=== PATIENT | female | born 1965 | race African-American/Black ===

== ENCOUNTER 2020-05-21 09:49 | Emergency (ER) | payer OTHER, SELFPAY ==
--- NOTE | 2020-05-21 10:06 | ED.EXTPRO ---
HPI - Extremity Problem General Chief complaint: Extremity Problem,Nontraumatic Stated complaint: right hand pain Time Seen by Provider: 05/21/20 10:06 Source: patient and RN notes reviewed Mode of arrival: ambulatory Limitations: no limitations History of Present Illness HPI Narrative: 55-year-old female presents with concern for pain to her right hand. She denies any injury, trauma. Reports pain for the past 2 days, dorsal hand pain. Reports pain worsens when she bends her third and fourth digit. Denies redness, swelling, decreased range of motion, decreased strength. 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 Complaint: extremity pain Related Data Home Medications Medication Instructions Recorded Confirmed atorvastatin 10 mg DAILY 05/21/20 05/21/20 lisinopril 10 mg DAILY 05/21/20 05/21/20 Allergies Allergy/AdvReac Type Severity Reaction Status Date / Time No Known Allergies Allergy Verified 05/21/20 09:55 Review of Systems Review of Systems: Narrative: CONSTITUTIONAL: Denies malaise, chills, sweats, or fever. SKIN: Denies redness, swelling, bruising MUSCULOSKELETAL: Reports right dorsal hand pain NEUROLOGIC: Denies numbness, weakness. All systems reviewed & are unremarkable except as noted in HPI and below PMFSH Social History Social History Gender identity (if verbalized by the patient): Female Comments At time of signature, agree with nursing past medical, surgical, social and family history. There is no relevant family history pertinent to the presenting complaint Exam Narrative: Exam Narrative: GENERAL: Well-appearing, well-nourished, and in no acute distress. HEAD: Normocephalic EYES: PERRLA, conjunctivae clear NECK: Supple. CHEST: Speaks in full sentences. No respiratory distress. HEART: Regular rate and rhythm. Normal and equal peripheral pulses. EXTREMITIES: Right hand and digits of hand have normal strength and sensation. 5/5 strength with digit flexion, extension. Range of motion normal. No clubbing, cyanosis, or edema noted. No tenderness. Skin intact. Normal digital cascade with flexion of fingers, median, ulnar and radial nerve intact. Normal sensation of each side of finger. Can perform 'okay' sign, 'cross over finger test of index and middle fingers' and 'thumbs up' sign. No scissoring. Normal thumb opposition. Good capillary refill and radial pulse. Distal capillary refill less than 3 seconds. SKIN: Warn, dry, intact, pink. No rash NEURO: Alert and oriented x3. PSYCH: Normal mood and affect Course Course Emergency Course: Patient is aware of diagnosis, understands and agrees to treatment plan. Anticipatory guidance given. Patient agrees to follow-up as directed and is aware of reasons to seek care at the emergency department. Portions of this record may have been created with voice recognition software Vital Signs Vital signs: Vital Signs Temperature 98.0 F 05/21/20 10:10 Pulse Rate 59 L 05/21/20 10:10 Respiratory Rate 16 05/21/20 10:10 Blood Pressure 164/70 H 05/21/20 10:10 Pulse Oximetry 99 05/21/20 10:10 Temperature 98.0 F 05/21/20 10:10 Pulse Rate 59 L 05/21/20 10:10 Respiratory Rate 16 05/21/20 10:10 Blood Pressure 164/70 H 05/21/20 10:10 Pulse Oximetry 99 05/21/20 10:10 Reviewed. Patient has history of hypertension MDM - Extremity (Nontraumatic) MDM Narrative Medical decision making narrative: Patients pain is consistent with musculoskeletal etiology. No signs of neurological or vascular compromise on exam. Compartments and tissues are soft without signs of compartment syndrome. Pain is felt appropriate for further evaluation on an outpatient basis. Critical Care Time Critical Care Time Critical Care Time: No Discharge Plan Discharge Clinical Impression: Hand tendinitis Patient Disposition: Home, Self-Care Condition: Stable Instructions: Tendinitis (ED) Additional Instructions: Avoid activities that cause pain until the amanda
[2020-05-21 10:10] VITALS: BP 164/70; PULSE 59; RESP 16; TEMP 36.7; O2SAT 99
== END 2020-05-21 10:29 | disposition home or self-care (01) ==
PROVIDERS: Emergency Provider Nurse Practitioner
DX: M77.9 Enthesopathy, unspecified (principal); E78.00 Pure hypercholesterolemia, unspecified; I10 Essential (primary) hypertension
CPT/HCPCS: 99213; G0463

== ENCOUNTER 2020-07-08 17:33 | Emergency (ER) | payer OTHER, SELFPAY ==
--- NOTE | 2020-07-08 17:42 | ED.GENADULT ---
HPI - General Adult General Chief complaint: Nausea/Vomiting/Diarrhea Stated complaint: Not Feeling Good Time Seen by Provider: 07/08/20 18:10 Source: patient Mode of arrival: ambulatory Limitations: no limitations History of Present Illness HPI narrative: 55-year-old female patient presents to the [facility] with complaints of nausea and vomiting that started this morning. Patient states she has had 3 episodes of this and states that it is all been some watery vomit. Patient states she still has a little bit of nausea denies any abdominal pain. Denies any fevers, body aches or chills. Denies any chest pain or shortness of breath. Patient states overall she feels okay except for the nausea and vomiting that came out of nowhere. Patient states she did have a normal bowel movement today. Patient states she does have a little bit of right buttocks pain but thinks that she might of pulled something when she was working out yesterday. Patient states that she has been able to keep down a couple of saltines prior to arrival today. Patient states she just got tested for Covid last week it was negative. Patient states she typically gets her self tested every other week at the free testing facility at [facility] Related Data Home Medications Medication Instructions Recorded Confirmed atorvastatin 10 mg DAILY 05/21/20 05/21/20 lisinopril 10 mg DAILY 05/21/20 05/21/20 Allergies Allergy/AdvReac Type Severity Reaction Status Date / Time No Known Allergies Allergy Verified 05/21/20 09:55 Review of Systems Review of Systems: Narrative: CONSTITUTIONAL: Denies fever, chills, or sweats. EYES: Denies visual changes, redness, or discharge. ENT: Denies rhinorrhea, congestion, sore throat, or otalgia. CARDIOVASCULAR: Denies chest pain, palpitations, or edema. RESPIRATORY: Denies cough or dyspnea. GASTROINTESTINAL: Denies abdominal pain, positive nausea, vomiting, denies diarrhea. GENITOURINARY: Denies dysuria or hematuria. SKIN: Denies rash or itching. MUSCULOSKELETAL: Denies back pain, joint pain, or myalgia. NEUROLOGIC: Denies headache, numbness, or weakness. PSYCHIATRIC: Denies anxiety or depression. [facility] Social History Social History Gender identity (if verbalized by the patient): Female Comments At the time of my signature I agree with nursing past medical history, surgical, social, and family history. There is no relevant family history pertinent to the presenting complaint. Exam Narrative: Exam Narrative: GENERAL: Well-appearing, well-nourished, and in no acute distress. HEAD: Normocephalic, atraumatic. EYES: PERRLA and EOMI. ENT: Nares clear, no rhinorrhea or epistaxis. Mucous membranes moist. NECK: Supple. No lymphadenopathy CHEST: Clear to auscultation. No respiratory distress. HEART: Regular rate and rhythm. No murmur heard. Normal peripheral pulses. ABDOMEN: Soft, flat, nondistended. No guarding, rebound tenderness, or rigid. No pulsatilla masses. Bowel sounds present in all four quadrants. No organomegaly. Negative Brown?s sign. No periumbicial tenderness. No Supra public tenderness or distension. Good femoral pulses bilaterally. No hernia noted. No scars or surface trauma. No CVA tenderness on percussion EXTREMITIES: Normal range of motion. No edema. SKIN: Warm, dry, no rash. NEURO: No focal deficits. Alert and oriented x3. Course Vital Signs Vital signs: Vital Signs Temperature 37.2 C 07/08/20 17:50 Pulse Rate 66 07/08/20 17:50 Respiratory Rate 18 07/08/20 17:50 Blood Pressure 155/68 H 07/08/20 17:50 Pulse Oximetry 100 07/08/20 17:50 Temperature 37.2 C 07/08/20 17:50 Pulse Rate 66 07/08/20 17:50 Respiratory Rate 18 07/08/20 17:50 Blood Pressure 155/68 H 07/08/20 17:50 Pulse Oximetry 100 07/08/20 17:50 Vital signs reviewed. The patient has been informed that they may have pre-hypertension or Hyper
[2020-07-08 17:50] VITALS: BP 155/68; PULSE 66; RESP 18; TEMP 37.2; O2SAT 100
== END 2020-07-08 18:23 | disposition home or self-care (01) ==
PROVIDERS: Emergency Provider Nurse Practitioner Family
DX: R11.2 Nausea with vomiting, unspecified (principal); E78.00 Pure hypercholesterolemia, unspecified; I10 Essential (primary) hypertension
CPT/HCPCS: 81003; 99213; G0463

== ENCOUNTER 2020-07-09 06:40 | Emergency (ER) | payer OTHER, SELFPAY ==
[2020-07-09 06:43] VITALS: BP 173/73; PULSE 64; RESP 16; TEMP 36.4; O2SAT 98
--- NOTE | 2020-07-09 07:05 | PC.NURSE ---
Assumed care of pt, report received from Riri BETANCOURT, pt is alert and upright on stretcher, order placed - n/v protocol.
[2020-07-09 07:15] VITALS: BP 177/77; PULSE 56
[2020-07-09 07:18] VITALS: BP 186/77; PULSE 59
[2020-07-09 07:20] VITALS: BP 175/82; PULSE 68; RESP 18; O2SAT 98
--- NOTE | 2020-07-09 07:20 | ED.NAVMDI ---
HPI - Nausea/Vomiting/Diarrhea General Chief complaint: Nausea/Vomiting/Diarrhea Stated complaint: just not feeling well Time Seen by Provider: 07/09/20 07:04 Source: patient Mode of arrival: ambulatory Limitations: no limitations History of Present Illness HPI Narrative: This patient is a 55 year old female who presents for an evaluation of nausea and vomiting. Yesterday morning she developed onset of nausea and vomiting. She was evaluated at [facility] yesterday and she was prescribed zofran. She has been taking the zofran but she is still unable to keep anything down. She last took zofran at 2 am this morning. She has tried to drink water and eat apple sauce but she developed emesis afterwards this morning. She denies associated fever, chills, abdominal pain, headache, dizziness, chest pain or diarrhea. She reports a normal bowel movement this morning. MD elicited complaint: nausea and vomiting Related Data Home Medications Medication Instructions Recorded Confirmed atorvastatin 10 mg DAILY 05/21/20 05/21/20 lisinopril 10 mg DAILY 05/21/20 05/21/20 Allergies Allergy/AdvReac Type Severity Reaction Status Date / Time No Known Allergies Allergy Verified 07/09/20 07:15 Review of Systems Review of Systems: All systems reviewed & are unremarkable except as noted in HPI and below Constitutional: Constitutional: Denies chills and Denies fever(s) ENT: Denies dizziness, Denies nasal congestion and Denies sore throat Cardiovascular: Cardiovascular: Denies chest pain Respiratory: Respiratory: Denies cough and Denies dyspnea Gastrointestinal: Gastrointestinal: Denies abdominal pain, Denies diarrhea, Reports nausea and Reports vomiting Genitourinary: Genitourinary: Denies hematuria and Denies nocturia [facility] Past Medical History Medical History (Updated 07/09/20 @ 09:35 by Gwendolyn Sanford MD) Hypertension Social History Social History Gender identity (if verbalized by the patient): Female Exam Const: General: no acute distress and alert Orientation/consciousness: patient oriented x3 Resp: Effort & Inspection: normal respiratory effort, no retractions and no use of accessory muscles Auscultation: clear to auscultation bilaterally Cardio: Rate: regular rate Rhythm: regular rhythm Heart sounds: Murmur heart sound present GI: GI Palp: Yes Soft to palpation, No Tenderness to palpation present (GI), No Guarding due to palpation present (GI) and No Rigid due to palpation Skin: General skin exam: normal color Rashes: no rashes Neuro: General: patient oriented x3 and moves all extremities Course Reevaluation(s) Reevaluation #1: She has had no nausea or vomiting. She was able to drink water and eat crackers without nausea or vomiting. She has no abdominal pain or tenderness. No fever or leukocytosis found to suggest need for imaging. Date: 07/09/20 Time: 09:33 Vital Signs Vital signs: Vital Signs Temperature 97.5 F L 07/09/20 06:43 Pulse Rate 64 07/09/20 06:43 Respiratory Rate 16 07/09/20 06:43 Blood Pressure 173/73 H 07/09/20 06:43 Pulse Oximetry 98 07/09/20 06:43 Temperature 97.5 F L 07/09/20 06:43 Pulse Rate 60 07/09/20 09:04 Respiratory Rate 18 07/09/20 09:04 Blood Pressure 172/70 H 07/09/20 09:04 Pulse Oximetry 100 07/09/20 09:04 MDM - Nausea/Vomiting/Diarrhea Lab Data Result diagrams: 07/09/20 07:22 07/09/20 07:22 Labs: Lab Results 07/09/20 07/09/20 07/09/20 Range/Units 07:09 07:22 07:22 WBC 8.4 (4.5-10.0) K/mm3 RBC 4.68 (4.2-5.4) M/mm3 Hgb 13.1 (12.0-15.0) g/dL Hct 38.1 (37.0-47.0) % MCV 81.4 (80-100) fl MCH 28.0 (26-34) pg MCHC 34.4 (32-36) g/dl RDW 12.4 (11.5-14.5) % Plt Count 299 (150-375) k/mm3 MPV 8.4 (7.4-10.4) fl Immature Gran % (Auto) 0.2 (0-0.5) % Neut % (Auto) 6
[2020-07-09 07:23] LABS: Add Urine Microscopic? YES; Appearance Urine Cloudy (Clear); Bilirubin Urine Negative (Negative); Color Urine Yellow (Yellow); Glucose Urine UA Negative (Negative); Ketones Urine Negative (Negative); Leukocyte Esterase Ur Negative LEU/UL (Negative); Mucus Urine Rare /lpf; Nitrate Urine Negative (Negative); Protein Urine Negative (Negative); Specific Grav Ur 1.013 (1.001-1.035); Squamous Epithelial Cell Urine Many /hpf (Few); Urobilinogen Urine Negative mg/dL (<2.0)
[2020-07-09 07:28] LABS: Basophils Percent Auto 0.1 % (0.2-1.2); Eosinophils Percent Auto 0.1 % (0-4.4); Hematocrit 38.1 % (37.0-47.0); Hemoglobin 13.1 g/dL (12.0-15.0); Immature Granulocyte Absolute 0.02 K/mm3 (0.00-0.031); Immature Granulocyte Percent A 0.2 % (0-0.5); Lymphocytes Absolute Auto 2.46 K/mm3 (0.9-3.2); Lymphocytes Percent Auto 29.3 % (18.3-44.2); Mean Corpuscular HGB Conc 34.4 g/dl (32-36); Mean Corpuscular Volume 81.4 fl (80-100); Mean Platelet Volume 8.4 fl (7.4-10.4); Monocytes Absolute Auto 0.6 K/mm3 (0.1-0.6); Monocytes Percent Auto 7.6 % (2.6-8.5); Neutrophils Absolute Auto 5.3 K/mm3 (1.3-6.7); Neutrophils Percent Auto 62.7 % (45.5-73.1); Platelet Count Result 299 k/mm3 (150-375); Red Blood Count 4.68 M/mm3 (4.2-5.4); Red Cell Distribution Width 12.4 % (11.5-14.5); White Blood Count 8.4 K/mm3 (4.5-10.0)
[2020-07-09 07:30] LABS: Blood Urine Negative (Negative)
[2020-07-09] MEDS: LACTATED RINGERS 1,000 ML 999 ML IV CONT (07:38)
[2020-07-09] MEDS: ONDANSETRON INJ 4 MG/2 ML VIAL IV PUSH (07:39)
[2020-07-09] MEDS: PANTOPRAZOLE SODIUM IV 40 MG VIAL IV PUSH (07:39)
[2020-07-09 07:40] LABS: Alanine Aminotransferase 26 U/L (4-35); Albumin Level 4.2 g/dL (3.5-5.1); Alkaline Phosphatase 101 U/L (38-126); Anion Gap 7 mmol/L (8-16); Aspartate Amino Transferase 35 U/L (14-36); Blood Urea Nitrogen 9 mg/dL (7-17); Calcium 9.3 mg/dL (8.4-10.2); Carbon Dioxide 28 mmol/L (22-30); Chloride 99 mmol/L (98-107); Estimated CRCL calculation 92 ml/min; Estimated Glomerular Filt Rate > 60; Glucose 130 mg/dL (65-105); Lipase 34 U/L (23-300); Potassium 4.2 mmol/L (3.4-5.0); Sodium 134 mmol/L (137-145)
[2020-07-09 09:04] VITALS: BP 172/70; PULSE 60; RESP 18; O2SAT 100
--- NOTE | 2020-07-09 09:31 | PC.NURSE ---
Pt tolerating oral intake well. Pt able to drink a cup of water and eat crackers without nausea or vomiting following.
== END 2020-07-09 09:47 | disposition home or self-care (01) ==
PROVIDERS: Emergency Provider General Practice
DX: R11.2 Nausea with vomiting, unspecified (principal); I10 Essential (primary) hypertension
CPT/HCPCS: 36415; 80053; 81001; 83690; 85025; 87086; 96361; 96374; 96375; 99284; C9113; J2405; J7120

== ENCOUNTER 2020-11-14 18:12 | Inpatient (IN) | payer OTHER, SELFPAY ==
[2020-11-14] VITALS (28 sets, daily range): BP systolic 102–131; BP diastolic 55–75; PULSE 83–100; RESP 16–46; TEMP 37.4; O2SAT 90–97
--- NOTE | ~2020-11-14 | XR_ITS ---
EXAMINATION: XR chest 2V DATE: 11/14/2020 18:46 INDICATION: Shortness of breath. TECHNIQUE: Frontal and lateral views of the chest were obtained. COMPARISON: Chest single view 12/06/2015, chest CT 12/06/2015 FINDINGS: There are patchy airspace opacities in all lung zones bilaterally with relative sparing of the lung apices. There is a small left pleural effusion. No pneumothorax. Cardiomegaly is noted. IMPRESSION: 1. Diffuse lung disease, consistent with pneumonia versus pulmonary edema. 2. Small left pleural effusion. 3. Cardiomegaly. Reviewed, dictated and finalized at location A. STIGATION DIVISION SERGEANT
--- NOTE | ~2020-11-14 | CT_ITS ---
EXAMINATION: CTA chest PE protocol DATE: 11/15/2020 00:31 INDICATION: Shortness of breath TECHNIQUE: Computed tomography (CT) pulmonary angiogram of the chest was performed with 100 mL Omnipa que-350 intravenous contrast. Additional 3D reconstructions utilizing coronal maximum intensity proje ction (MIP) were performed. Automated exposure control and iterative reconstruction technique were em ployed. The dose-length product was 1010.25 mGy-cm. COMPARISON: None FINDINGS: Adequate but suboptimal contrast opacification of the pulmonary arteries. There is mild streak artifa ct from dense contrast in the superior vena cava and right atrium. Mild scattered respiratory motion artifact. Overall this decreases sensitivity in the subsegmental pulmonary arteries. No definite pulm onary embolism. There are bilateral peripheral and lower lung predominant patchy groundglass opacitie s which are most suspicious for COVID pneumonia. No pleural effusion or pneumothorax. Cardiomegaly. N o pericardial effusion. Thoracic aorta is normal in caliber with no dissection. No pathologically enl arged thoracic lymphadenopathy. Small sliding-type hiatal hernia. Postoperative change of prior gastr ic bypass. Multiple right renal cysts measuring up to 2.8 cm in maximal diameter. There is a more sub tle 1.8 cm hypodense nodule along the posterior margin of the right hepatic lobe. There are several s mall calcified hepatic nodules consistent with old granulomatous disease. Severe spondylosis at the t horacolumbar junction more caudal lumbar spine. IMPRESSION: 1. No pulmonary embolism. Sensitivity decreased in the subsegmental pulmonary arteries due to combina tion of suboptimal contrast opacification and mild motion. 2. Patchy bilateral peripheral and lower lung predominant groundglass opacities most consistent with COVID pneumonia. 3. Cardiomegaly. 4. Indeterminate 1.8 cm hypodense mass in the right hepatic lobe. Recommend pre and postcontrast MRI for further evaluation. 5. Small sliding-type hiatal hernia with change of prior gastric bypass. Reviewed, dictated and finalized at location A. MARKETING IMPRESSION: 1. No pulmonary embolism. Sensitivity decreased in the subsegmental pulmonary a rteries due to combination of suboptimal contrast opacification and mild motion . 2. Patchy bilateral peripheral and lower lung predominant groundglass opacities most consistent with COVID pneumonia. 3. Cardiomegaly. 4. Indeterminate 1.8 cm hypodense mass in the right hepatic lobe. Recommend pre and postcontrast MRI for further evaluation. 5. Small sliding-type hiatal hernia with change of prior gastric bypass.
--- NOTE | ~2020-11-14 | XR_ITS ---
EXAMINATION: XR chest 1V portable DATE: 11/18/2020 08:46 INDICATION: Shortness of breath. COVID pneumonia. TECHNIQUE: frontal view of the chest was obtained. COMPARISON: Chest radiograph dated 11/14/[address] dated 11/15/2020 FINDINGS: Interval increase in bilateral patchy airspace opacities throughout the mid and lower lung zones. No pleural effusion or pneumothorax. Cardiomegaly. Mild thoracic dextrocurvature. IMPRESSION: 1. Progression of patchy airspace opacities in the bilateral mid and lower lung zones consistent with worsening pneumonia. Reviewed, dictated and finalized at location A. OR MANAGER
--- NOTE | 2020-11-14 18:19 | ECG_ITS ---
Measurements Intervals [place] Rate: 95 P: 57 GA: 166 QRS: 48 QRSD: 81 T: 52 QT: 322 QTc: 406 Interpretive Statements SINUS RHYTHM POSSIBLE LEFT ATRIAL ENLARGEMENT BASELINE ARTIFACT- I, II, III, AVR, AVL, AVF BORDERLINE ECG Electronically Signed On 11-14-2020 19:23:55 ONCOLOGY NURSE NAVIGATOR by Felipe Coulter D.O.
[2020-11-14 18:29] LABS: Hematocrit 39.6 % (37.0-47.0); Immature Granulocyte Absolute 0.01 K/mm3 (0.00-0.031); Immature Granulocyte Percent A 0.2 % (0-0.5); Lymphocytes Absolute Auto 1.27 K/mm3 (0.9-3.2); Lymphocytes Percent Auto 26.8 % (18.3-44.2); Mean Corpuscular HGB Conc 32.8 g/dl (32-36); Mean Corpuscular Hemoglobin 27.7 pg (26-34); Mean Corpuscular Volume 84.4 fl (80-100); Mean Platelet Volume 9.6 fl (7.4-10.4); Monocytes Absolute Auto 0.3 K/mm3 (0.1-0.6); Monocytes Percent Auto 6.3 % (2.6-8.5); Neutrophils Absolute Auto 3.2 K/mm3 (1.3-6.7); Neutrophils Percent Auto 66.7 % (45.5-73.1); Platelet Count Result 185 k/mm3 (150-375); Red Blood Count 4.69 M/mm3 (4.2-5.4); Red Cell Distribution Width 12.7 % (11.5-14.5); White Blood Count 4.7 K/mm3 (4.5-10.0)
[2020-11-14 18:44] LABS: Anion Gap 6 mmol/L (8-16); Blood Urea Nitrogen 16 mg/dL (7-17); Carbon Dioxide 28 mmol/L (22-30); Chloride 105 mmol/L (98-107); Estimated CRCL calculation 80 ml/min; Estimated Glomerular Filt Rate > 60; Glucose 113 mg/dL (65-105); Potassium 4.4 mmol/L (3.4-5.0); Sodium 139 mmol/L (137-145)
--- NOTE | 2020-11-14 20:51 | ED.SOB ---
HPI - SOB/Dyspnea General Chief Complaint: Shortness of Breath/Dyspnea Stated Complaint: sob Time Seen by Provider: 11/14/20 19:48 Source: patient Mode of arrival: ambulatory Limitations: no limitations History of Present Illness HPI Narrative: This patient is a 55 year old female with history of hypertension and hyperlipidemia who presents for evaluation of dehydration and shortness of breath. She states her mouth feels dry so she thinks she is dehydration. She also reports shortness of breath since she woke up this morning. Her daughter reports she is short of breath with laying down and she is also sob with exertion. Patient denies history of CHF or heart disease. She denies leg swelling or chest pain. She does reports she has had a cough since Saturday and nasal congestion. She is unsure of fever or chils. 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 Related Data Home Medications Medication Instructions Recorded Confirmed atorvastatin 10 mg PO DAILY 05/21/20 11/15/20 lisinopril 10 mg PO DAILY 05/21/20 11/15/20 Allergies Allergy/AdvReac Type Severity Reaction Status Date / Time No Known Allergies Allergy Verified 07/09/20 07:15 Review of Systems Review of Systems: All systems reviewed & are unremarkable except as noted in HPI and below Constitutional: Constitutional: Denies chills and Denies fever(s) ENT: Reports nasal congestion Cardiovascular: Cardiovascular: Denies chest pain Respiratory: Respiratory: Reports cough (since Saturday) and Reports dyspnea Gastrointestinal: Gastrointestinal: Denies abdominal pain, Reports diarrhea, Denies nausea and Denies vomiting PMFSH Past Medical History Medical History (Updated 11/15/20 @ 01:46 by Gwendolyn Sanford MD) Hyperlipidemia Hypertension Social History Social History (Updated 11/14/20 @ 20:52 by Gwendolyn Sanford MD) Smoking status: Never smoker Alcohol intake: never Substance use: never Gender identity (if verbalized by the patient): Female Spiritual care concerns: No Exam Const: General: no acute distress and alert Orientation/consciousness: patient oriented x3 Eyes: EOM: EOMs intact bilaterally Chest: Chest palpation & inspection: normal inspection of the chest Resp: Effort & Inspection: normal respiratory effort and no retractions Auscultation: clear to auscultation bilaterally Cardio: Rate: regular rate Rhythm: regular rhythm Heart sounds: no murmurs GI: GI Palp: Yes Soft to palpation, No Tenderness to palpation present (GI) and No Guarding due to palpation present (GI) Auscultation: normal bowel sounds Neuro: General: patient oriented x3, moves all extremities and CN's II-XI intact bilaterally Psych: Mental Status: mental status grossly normal Affect: normal affect Course Consultations Consultation #1: I discussed case with Dr. Cosme. She accepts patient for observation for pneumonia and hypoxia. She request a d dimer. She is okay with dose of IV antibiotics. Date: 11/14/20 Time: 22:20 Vital Signs Vital signs: Vital Signs Temperature 99.4 F 11/14/20 18:16 Pulse Rate 95 11/14/20 18:16 Respiratory Rate 18 11/14/20 18:16 Blood Pressure 131/70 11/14/20 18:16 Pulse Oximetry 90 11/14/20 18:16 Temperature 100.4 F H 11/15/20 00:30 Pulse Rate 88 11/15/20 00:30 Respiratory Rate 22 H 11/15/20 00:30 Blood Pressure 123/65 11/15/20 00:30 Pulse Oximetry 96 11/15/20 00:30 MDM - SOB/Dyspnea Lab Data Result diagrams: 11/14/20 18:25 11/14/20 18:25 Labs: Lab Results 11/14/20 11/14/20 11/14/20 Range/Units 18:25 18:25 18:25 WBC 4.7 (4.5-10.0) K/mm3 RBC 4.69 (4.2-5.4) M/mm3 Hgb 13.0 (12.0-15.0) g/dL Hct 39.6 (37.0-47.0) % MCV 84.4 (80-100) fl MCH 27.7 (26-34) pg MCHC 32.8 (32-36) g/dl RDW 12.7 (11.5-14.5) % Plt Count 185 (150-375) k/mm3 MPV 9.6 (7.4-10.4) fl Immature Gran % (Auto) 0.2
[2020-11-14 21:02] LABS: NT Pro B Type Natriuretic Pept 165 PG/ML (5-100); Troponin I < 0.012 ng/mL (0.000-0.034)
[2020-11-14 21:31] LABS: CRP 4.8 mg/dL (<1.0)
[2020-11-14 21:36] LABS: Alveolar/Arterial O2 Gradient 55.2 mmHg; Base Excess ABG -0.2 mEq/l (+/-2.0); Carboxyhemoglobin 0.4 % THb (0-2.0); Fractional Inspired Oxygen 21 %; HCO3 ABG 22.5 mEq/l (22.0-26.0); Methemoglobin ABG 0.3 %THb (0-1.5); Oxygen Content ABG 16.8 %vol (16.0-22.0); Oxygen Saturation ABG 91.8 % (95.0-100.0); Oxyhemoglobin 89.7 % THb (90.0-100.0); PCO2 ABG 31.3 mmHg (35.0-45.0); PO2 ABG 57.1 mmHg (80.0-100.0); PO2 FiO2 Ratio Arterial Blood 2.72 %; Reduced Hemoglobin 9.6 %THb (0-5.0); Total Hemoglobin 13.3 g/dL (12.0-18.0); pH ABG 7.475 (7.350-7.450)
[2020-11-14 21:37] LABS: Device ROOM AIR; Modified Allen's Test Pass; Site Drawn RIGHT RADIAL
[2020-11-15] VITALS (10 sets, daily range): BP systolic 108–127; BP diastolic 62–78; PULSE 57–88; RESP 18–22; TEMP 36.2–38; O2SAT 94–99; BMI 40.6
[2020-11-15] MEDS: DEXAMETHASONE SOD PHOS INJ 4 MG/ML VIAL 6 MG IV PUSH
--- NOTE | 2020-11-15 00:39 | ADMGEN ---
This patient, Marleni Celestin, was admitted to [facility] Surg Room 328-01. Patient/family oriented to hospital policies and general routines including ID bracelet, bed and alarms, visiting hours, pain management, procedures, bathroom and other care routines, personal items, smoking policy, room service/diet, and visiting hours. Information on how to activate the Rapid Response Team has been discussed. Patient/Family are encouraged to report perceived risks to care and to ask questions if they do not understand what they are told or what they should do.
[2020-11-15 06:40] LABS: Basophils Percent Auto 0.3 % (0.2-1.2); Hematocrit 38.8 % (37.0-47.0); Hemoglobin 12.6 g/dL (12.0-15.0); Immature Granulocyte Absolute 0.02 K/mm3 (0.00-0.031); Immature Granulocyte Percent A 0.5 % (0-0.5); Lymphocytes Absolute Auto 0.83 K/mm3 (0.9-3.2); Lymphocytes Percent Auto 22.3 % (18.3-44.2); Mean Corpuscular HGB Conc 32.5 g/dl (32-36); Mean Corpuscular Hemoglobin 27.3 pg (26-34); Mean Corpuscular Volume 84.2 fl (80-100); Mean Platelet Volume 9.6 fl (7.4-10.4); Monocytes Absolute Auto 0.2 K/mm3 (0.1-0.6); Monocytes Percent Auto 5.6 % (2.6-8.5); Neutrophils Absolute Auto 2.7 K/mm3 (1.3-6.7); Neutrophils Percent Auto 71.3 % (45.5-73.1); Platelet Count Result 218 k/mm3 (150-375); Red Blood Count 4.61 M/mm3 (4.2-5.4); Red Cell Distribution Width 12.6 % (11.5-14.5); White Blood Count 3.7 K/mm3 (4.5-10.0)
[2020-11-15 06:47] LABS: Alanine Aminotransferase 21 U/L (4-35); Albumin Level 3.6 g/dL (3.5-5.1); Alkaline Phosphatase 50 U/L (38-126); Anion Gap 5 mmol/L (8-16); Aspartate Amino Transferase 49 U/L (14-36); Bilirubin,Total 0.4 mg/dL (0.2-1.3); Blood Urea Nitrogen 15 mg/dL (7-17); Calcium 8.2 mg/dL (8.4-10.2); Carbon Dioxide 28 mmol/L (22-30); Chloride 105 mmol/L (98-107); Estimated CRCL calculation 81 ml/min; Estimated Glomerular Filt Rate > 60; Glucose 186 mg/dL (65-105); Potassium 4.5 mmol/L (3.4-5.0); Sodium 138 mmol/L (137-145)
[2020-11-15 14:42] LABS: SARS-CoV-2 RNA PCR Positive
--- NOTE | 2020-11-15 16:49 | PM.IMHP ---
H&P: HPI History of Present Illness Date/Time: 11/15/20 16:49 Chief Complaint: Shortness of breath Narrative: Marleni Celestin is a 55 year old female admitted with sob, cough dry mouth. 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 Pt goes frequently to have a covid test in [place] and has been negative previously. Pt denies any covid exposure. Pt started to feel bad on Saturday. mouth dry, shortness of breath now having fevers in the hospital and is on 2 liters of oxygen. Cxr and ct chest shows covid pneumonia. Discussed starting remdesivir on the patient and continuing iv steroids and oxygen. Review of Systems Review of Systems: ROS unobtainable: Yes other (SOB, dry mouth, low grade fevers, no cough ) PMFSH Past Medical History Medical History Hyperlipidemia Hypertension Social History Social History Smoking status: Never smoker Alcohol intake: never Substance use: never Gender identity (if verbalized by the patient): Female Spiritual care concerns: No Meds Home Medications and Allergies Home Medications Medication Instructions Recorded Confirmed Type atorvastatin 10 mg PO DAILY 05/21/20 11/15/20 History lisinopril 10 mg PO DAILY 05/21/20 11/15/20 History Allergies Allergy/AdvReac Type Severity Reaction Status Date / Time No Known Allergies Allergy Verified 07/09/20 07:15 Vital Signs Vital Signs - 24 hr 11/14/20 18:16 11/14/20 19:48 11/14/20 20:04 Temperature 37.4 C Pulse Rate 95 92 92 Respiratory Rate 18 42 H 46 H Blood Pressure 131/70 Pulse Oximetry 90 97 93 11/14/20 20:21 11/14/20 20:30 11/14/20 20:32 Temperature Pulse Rate 96 92 90 Respiratory Rate 36 H 23 H 31 H Blood Pressure 116/64 Pulse Oximetry 93 93 93 11/14/20 20:45 11/14/20 20:46 11/14/20 20:47 Temperature Pulse Rate 93 91 91 Respiratory Rate 26 H 40 H Blood Pressure 112/62 Pulse Oximetry 91 92 92 11/14/20 21:15 11/14/20 21:17 11/14/20 21:23 Temperature Pulse Rate 94 92 93 Respiratory Rate 24 H 21 H Blood Pressure 120/64 119/63 Pulse Oximetry 92 94 94 11/14/20 21:34 11/14/20 21:42 11/14/20 21:45 Temperature Pulse Rate 91 88 83 Respiratory Rate 22 H 18 Blood Pressure 111/75 Pulse Oximetry 93 11/14/20 21:46 11/14/20 22:00 11/14/20 22:02 Temperature Pulse Rate 86 89 88 Respiratory Rate 25 H Blood Pressure 119/68 121/69 Pulse Oximetry 11/14/20 22:15 11/14/20 22:17 11/14/20 22:30 Temperature Pulse Rate 90 90 89 Respiratory Rate 18 16 19 Blood Pressure 102/63 Pulse Oximetry 11/14/20 22:31 11/14/20 22:45 11/14/20 22:46 Temperature Pulse Rate 87 85 85 Respiratory Rate Blood Pressure 108/63 113/61 Pulse Oximetry 11/14/20 23:00 11/14/20 23:01 11/14/20 23:15 Temperature Pulse Rate 85 86 85 Respiratory Rate 23 H Blood Pressure 104/61 Pulse Oximetry 11/14/20 23:16 11/15/20 00:17 11/15/20 00:30 Temperature 37.2 C 38.0 C H Pulse Rate 85 81 88 Respiratory Rate 20 22 H 22 H Blood Pressure 107/55 L 108/78 123/65 Pulse Oximetry 97 96 11/15/20 06:23 11/15/20 08:00 11/15/20 08:30 Temperature 36.3 C L Pulse Rate 59 L 59 L Respiratory Rate 18 18 Blood Pressure 122/62 Pulse Oximetry 95 98 98 11/15/20 13:00 Temperature 36.6 C Pulse Rate 64 Respiratory Rate 18 Blood Pressure 114/74 Pulse Oximetry 97 Exam Const: General: well developed Nutritional Appearance: well nourished HENMT: Head: normocephalic Eyes: General: appearance normal, both eyes and all related structures Pupils: Equal, round and reactive pupils present Neck: Neck: supple Chest: Chest palpation & inspection: normal inspection of the chest GI: GI Palp: No abdominal tenderness, Yes Soft to palpation and No Tenderness to palpation present (GI) Auscultation: normal bowel sounds Skin: General skin exam:
[2020-11-15] MEDS: REMDESIVIR 200 MG/NS 250 ML 200 MG/250 ML BAG 250 MG IVPB (17:46)
[2020-11-15 17:53] LABS: Alanine Aminotransferase 28 U/L (4-35); Estimated CRCL calculation 91 ml/min; Estimated Glomerular Filt Rate > 60
[2020-11-15] MEDS: ENOXAPARIN 40 MG/0.4 ML SYRINGE SUB-Q (21:33)
[2020-11-16] VITALS (9 sets, daily range): BP systolic 122–145; BP diastolic 57–64; PULSE 58–82; RESP 18–20; TEMP 35.9–36.9; O2SAT 90–95
[2020-11-16 07:02] LABS: Alanine Aminotransferase 29 U/L (4-35); Estimated CRCL calculation 91 ml/min; Estimated Glomerular Filt Rate > 60
[2020-11-16] MEDS: lisinopriL 10 MG TABLET PO (08:18)
[2020-11-16] MEDS: ATORVASTATIN 10 MG TABLET PO (08:18)
[2020-11-16] MEDS: ENOXAPARIN 40 MG/0.4 ML SYRINGE SUB-Q ×2 (08:18→21:22)
[2020-11-16] MEDS: DEXAMETHASONE SOD PHOS INJ 4 MG/ML VIAL 6 MG IV PUSH (08:18)
--- NOTE | 2020-11-16 17:41 | PM.IMPN ---
Progress Note: A&P Assessment and Plan (1) Pneumonia due to COVID-19 virus: Code(s): U07.1 - COVID-19; J12.82 - Pneumonia due to coronavirus disease 2019 Status: Acute Assessment and Plan: REmdesivir and iv steroids lovenox BID and albuterol treatments (2) Hypoxia: Code(s): R09.02 - Hypoxemia Status: Acute Assessment and Plan: Oxygen at 1 liter watch respiratory status Subjective Date/time seen: 11/16/20 17:41 Interval history: Cxr and ct chest shows covid pneumonia. STarted remdesivir on the patient and continuing iv steroids and oxygen. Pt feels better down to 1 liter of oxyen, no cough or fever today mild SOB on ambulation. Review of Systems Review of Systems: All systems reviewed & are unremarkable except as noted in HPI and below Exam Const: General: well developed Nutritional Appearance: well nourished HENMT: Head: normocephalic Eyes: General: appearance normal, both eyes and all related structures Pupils: Equal, round and reactive pupils present Neck: Neck: supple Chest: Chest palpation & inspection: normal inspection of the chest GI: Auscultation: normal bowel sounds Skin: General skin exam: normal color and dry skin Neuro: Cranial nerves: Yes CN's II-XII intact bilaterally and Yes Equal, round and reactive pupils present Cognition (Neuro): normal cognition Speech: normal speech Motor exam (neuro): 5/5 motor strength present throughout Extrem: General: normal to inspection Psych: Appearance: grossly normal Mental Status: mental status grossly normal Objective Data Vital Signs Vital Signs: Vital Signs - 24 hr 11/15/20 18:18 11/15/20 20:00 11/15/20 20:35 Temperature 36.2 C L Pulse Rate 57 L 75 Respiratory Rate 18 20 Blood Pressure 113/65 Pulse Oximetry 99 95 94 11/16/20 03:55 11/16/20 08:00 11/16/20 08:18 Temperature 36.9 C 36.6 C Pulse Rate 82 70 Respiratory Rate 20 18 Blood Pressure 126/57 L 122/61 Pulse Oximetry 92 90 90 11/16/20 12:00 11/16/20 15:49 11/16/20 16:00 Temperature 36.6 C 36.7 C Pulse Rate 77 62 Respiratory Rate 18 18 Blood Pressure 127/64 124/64 Pulse Oximetry 92 92 95 Intake/Output Intake/Output: Intake & Output 11/13/20 11/14/20 11/15/20 11/16/20 23:59 23:59 23:59 23:59 Intake Total 300 1280 780 Output Total 300 450 Balance 300 980 330 Meds/Results Medications: Active Medications Generic Name Dose Route Start Last Admin Trade Name Freq PRN Reason Stop Dose Admin Albuterol 2 puff 11/15/20 17:01 Albuterol Sulfate (*Sp) Aerosol 1 Puff INHALATION Q6HRT PRN Shortness Of Breath Atorvastatin Calcium 10 mg 11/16/20 09:00 11/16/20 08:18 Atorvastatin 10 Mg Tablet PO 10 mg DAILY DIEGO Administration Dexamethasone Sodium Phosphate 6 mg 11/16/20 09:00 11/16/20 08:18 Dexamethasone Sod Phos Inj 4 Mg/Ml Vial IV PUSH 11/25/20 09:01 6 mg DAILY DIEGO Administration Enoxaparin Sodium 40 mg 11/15/20 21:00 11/16/20 08:18 Enoxaparin 40 Mg/0.4 Ml Syringe SUB-Q 40 mg Q12HR DIEGO Administration Remdesivir 100 mg in 250 mls @ 250 mls/hr 11/16/20 20:00 IVPB 11/19/20 20:01 Q24H DIEGO Lisinopril 10 mg 11/16/20 09:00 11/16/20 08:18 Lisinopril 10 Mg Tablet PO 10 mg DAILY DIEGO Administration Radiology Results: ITS Impressions Chest X-Ray 11/14/20 18:47 IMPRESSION: 1. Diffuse lung disease, consistent with pneumonia versus pulmonary edema. 2. Small left pleural effusion. 3. Cardiomegaly. Chest CTA 11/15/20 08:35 IMPRESSION: 1. No pulmonary embolism. Sensitivity decreased in the subsegmental pulmonary arteries due to combination of suboptimal contrast opacification and mild motion. 2. Patchy bilateral peripheral and lower lung predominant groundglass opacities most consistent with COVID pneumonia. 3. Cardiomegaly. 4. Indeterminate 1.8 cm hypodense mass in the right hepatic lobe. Recommend pre and postcontrast MRI for further nik
[2020-11-16] MEDS: REMDESIVIR 100 MG/NS 250 ML 100 MG/250 ML BAG 250 MG IVPB (21:22)
[2020-11-17 03:38] VITALS: BP 141/71; PULSE 57; RESP 20; TEMP 36.7; O2SAT 90
[2020-11-17 06:35] LABS: Alanine Aminotransferase 37 U/L (4-35); Albumin Level 3.3 g/dL (3.5-5.1); Alkaline Phosphatase 48 U/L (38-126); Anion Gap 6 mmol/L (8-16); Aspartate Amino Transferase 54 U/L (14-36); Bilirubin,Total 0.5 mg/dL (0.2-1.3); Blood Urea Nitrogen 20 mg/dL (7-17); Calcium 8.5 mg/dL (8.4-10.2); Carbon Dioxide 29 mmol/L (22-30); Chloride 107 mmol/L (98-107); Estimated CRCL calculation 91 ml/min; Estimated Glomerular Filt Rate > 60; Glucose 115 mg/dL (65-105); Potassium 4.3 mmol/L (3.4-5.0); Sodium 142 mmol/L (137-145)
[2020-11-17 07:54] VITALS: BP 134/76; PULSE 55; RESP 18; TEMP 36.8; O2SAT 91
[2020-11-17 08:10] VITALS: O2SAT 91
[2020-11-17] MEDS: lisinopriL 10 MG TABLET PO (09:30)
[2020-11-17] MEDS: DEXAMETHASONE SOD PHOS INJ 4 MG/ML VIAL 6 MG IV PUSH (09:31)
[2020-11-17] MEDS: ATORVASTATIN 10 MG TABLET PO (09:31)
[2020-11-17] MEDS: ENOXAPARIN 40 MG/0.4 ML SYRINGE SUB-Q ×2 (09:31→21:21)
[2020-11-17 11:57] VITALS: BP 141/62; PULSE 59; RESP 18; TEMP 36.8; O2SAT 91
--- NOTE | 2020-11-17 15:54 | PM.IMPN ---
Progress Note: A&P Assessment and Plan (1) Pneumonia due to COVID-19 virus: Code(s): U07.1 - COVID-19; J12.82 - Pneumonia due to coronavirus disease 2019 Status: Acute Assessment and Plan: Remdesivir Day 3 and iv steroids lovenox BID and albuterol treatments (2) Hypoxia: Code(s): R09.02 - Hypoxemia Status: Resolved Assessment and Plan: off oxygen continue to watch order chestxray sha, hopeful discharge soon Subjective Date/time seen: 11/17/20 15:54 Interval history: Cxr and ct chest shows covid pneumonia. Started remdesivir on the patient and continuing iv steroids and oxygen. Pt feels better down to room air and doing well. moving around in the room, wants to go home soon. Review of Systems Review of Systems: All systems reviewed & are unremarkable except as noted in HPI and below Exam Const: General: well developed Nutritional Appearance: well nourished HENMT: Head: normocephalic Eyes: General: appearance normal, both eyes and all related structures Pupils: Equal, round and reactive pupils present Neck: Neck: supple Chest: Chest palpation & inspection: normal inspection of the chest GI: Auscultation: normal bowel sounds Skin: General skin exam: normal color and dry skin Neuro: Cranial nerves: Yes CN's II-XII intact bilaterally and Yes Equal, round and reactive pupils present Cognition (Neuro): normal cognition Speech: normal speech Motor exam (neuro): 5/5 motor strength present throughout Extrem: General: normal to inspection Psych: Appearance: grossly normal Mental Status: mental status grossly normal Objective Data Vital Signs Vital Signs: Vital Signs - 24 hr 11/16/20 16:00 11/16/20 20:00 11/16/20 21:45 Temperature 36.7 C 35.9 C L Pulse Rate 62 60 Respiratory Rate 18 20 Blood Pressure 124/64 135/62 Pulse Oximetry 95 93 91 11/16/20 23:38 11/17/20 03:38 11/17/20 07:54 Temperature 36.4 C 36.7 C 36.8 C Pulse Rate 58 L 57 L 55 L Respiratory Rate 20 20 18 Blood Pressure 145/64 H 141/71 H 134/76 Pulse Oximetry 91 90 91 11/17/20 08:10 11/17/20 11:57 Temperature 36.8 C Pulse Rate 59 L Respiratory Rate 18 Blood Pressure 141/62 H Pulse Oximetry 91 91 Intake/Output Intake/Output: Intake & Output 11/14/20 11/15/20 11/16/20 11/17/20 23:59 23:59 23:59 23:59 Intake Total 300 1280 1810 1230 Output Total 300 450 400 Balance 942 964 6620 830 Meds/Results Medications: Active Medications Generic Name Dose Route Start Last Admin Trade Name Freq PRN Reason Stop Dose Admin Albuterol 2 puff 11/15/20 17:01 Albuterol Sulfate (*Sp) Aerosol 1 Puff INHALATION Q6HRT PRN Shortness Of Breath Atorvastatin Calcium 10 mg 11/16/20 09:00 11/17/20 09:31 Atorvastatin 10 Mg Tablet PO 10 mg DAILY DIEGO Administration Dexamethasone Sodium Phosphate 6 mg 11/16/20 09:00 11/17/20 09:31 Dexamethasone Sod Phos Inj 4 Mg/Ml Vial IV PUSH 11/25/20 09:01 6 mg DAILY DIEGO Administration Enoxaparin Sodium 40 mg 11/15/20 21:00 11/17/20 09:31 Enoxaparin 40 Mg/0.4 Ml Syringe SUB-Q 40 mg Q12HR DIEGO Administration Remdesivir 100 mg in 250 mls @ 250 mls/hr 11/16/20 20:00 11/16/20 21:22 IVPB 11/19/20 20:01 250 mls/hr Q24H DIEGO Administration Lisinopril 10 mg 11/16/20 09:00 11/17/20 09:30 Lisinopril 10 Mg Tablet PO 10 mg DAILY DIEGO Administration Radiology Results: ITS Impressions Chest X-Ray 11/14/20 18:47 IMPRESSION: 1. Diffuse lung disease, consistent with pneumonia versus pulmonary edema. 2. Small left pleural effusion. 3. Cardiomegaly. Chest CTA 11/15/20 08:35 IMPRESSION: 1. No pulmonary embolism. Sensitivity decreased in the subsegmental pulmonary arteries due to combination of suboptimal contrast opacification and mild motion. 2. Patchy bilateral peripheral and lower lung predominant groundglass opacities most consistent with COVID pneumonia. 3. Cardiomegaly. 4. Indeterminat
[2020-11-17 16:45] VITALS: BP 148/74; PULSE 59; RESP 18; TEMP 36.6; O2SAT 90
[2020-11-17 20:00] VITALS: BP 147/73; PULSE 61; RESP 20; TEMP 36.1; O2SAT 98; O2SAT 99
[2020-11-17] MEDS: REMDESIVIR 100 MG/NS 250 ML 100 MG/250 ML BAG 250 MG IVPB (21:14)
[2020-11-18] VITALS: BP 148/64; PULSE 49; RESP 20; TEMP 36.6; O2SAT 93
[2020-11-18 04:00] VITALS: BP 144/57; PULSE 50; RESP 20; TEMP 36.4; O2SAT 94
[2020-11-18 06:24] LABS: Alanine Aminotransferase 39 U/L (4-35); Albumin Level 3.4 g/dL (3.5-5.1); Alkaline Phosphatase 52 U/L (38-126); Anion Gap 7 mmol/L (8-16); Aspartate Amino Transferase 45 U/L (14-36); Bilirubin,Total 0.5 mg/dL (0.2-1.3); Blood Urea Nitrogen 17 mg/dL (7-17); Calcium 8.7 mg/dL (8.4-10.2); Carbon Dioxide 27 mmol/L (22-30); Chloride 108 mmol/L (98-107); Estimated CRCL calculation 91 ml/min; Estimated Glomerular Filt Rate > 60; Glucose 101 mg/dL (65-105); Sodium 142 mmol/L (137-145)
[2020-11-18 08:00] VITALS: BP 149/70; PULSE 58; RESP 16; TEMP 36.9; O2SAT 96
[2020-11-18 09:21] VITALS: BP 133/67; PULSE 74; RESP 18; TEMP 36.2; O2SAT 96
[2020-11-18] MEDS: ENOXAPARIN 40 MG/0.4 ML SYRINGE SUB-Q (09:22)
[2020-11-18] MEDS: ATORVASTATIN 10 MG TABLET PO (09:23)
[2020-11-18] MEDS: DEXAMETHASONE SOD PHOS INJ 4 MG/ML VIAL 6 MG IV PUSH (09:23)
[2020-11-18] MEDS: lisinopriL 10 MG TABLET PO (09:23)
[2020-11-18 12:00] VITALS: BP 146/71; PULSE 63; RESP 16; TEMP 36.7; O2SAT 94
--- NOTE | 2020-11-18 14:14 | PM.DS ---
DS: Admitting Diagnosis Admitting Diagnosis Admitting Diagnosis: Shortness of breath DS: Discharge Diagnosis Discharge Diagnosis (1) Pneumonia due to COVID-19 virus: Code(s): U07.1 - COVID-19; J12.82 - Pneumonia due to coronavirus disease 2019 Status: Acute Assessment and Plan: Remdesivir Day 4 and iv steroids lovenox BID and albuterol treatments doing well on current treatments off oxygen. wants to go home. Cxr still shows pneumonia. (2) Hypoxia: Code(s): R09.02 - Hypoxemia Status: Resolved Assessment and Plan: Off oxygen, doing well. DS: Summary Hospital Course Hospital Course: Cxr and ct chest shows covid pneumonia. Started remdesivir on the patient and continuing iv steroids and oxygen. Pt feels better down to room air and doing well. moving around in the room, wants to go home soon. Rpt cxr still shows COVId pneumonia. Pt discharged with steroids and albuterol adviced that she is not completely recovered but pt still wants to go home. Time Spent with Patient Time attestation: Total time spent providing and/or coordinating discharge services:40 minutes on day of dischrage Exam Const: General: other (no cough no fever breathing normaly ); No ill appearing HENMT: Head: normocephalic Eyes: General: appearance normal, both eyes and all related structures Pupils: Equal, round and reactive pupils present Neck: Neck: supple Chest: Chest palpation & inspection: normal inspection of the chest GI: Auscultation: normal bowel sounds Skin: General skin exam: normal color and dry skin Neuro: Cranial nerves: Yes CN's II-XII intact bilaterally and Yes Equal, round and reactive pupils present Cognition (Neuro): normal cognition Speech: normal speech Motor exam (neuro): 5/5 motor strength present throughout Extrem: General: normal to inspection Psych: Appearance: grossly normal Mental Status: mental status grossly normal DS: Data Data Completed and Pending Labs on day of discharge: Labs from last 24 hours 11/18/20 11/18/20 05:41 05:41 Sodium 142 Potassium 4.0 Chloride 108 H Carbon Dioxide 27 Anion Gap 7 L BUN 17 Creatinine 0.70 Cancelled Estim Creat Clear Calc 91 Cancelled Estimated GFR > 60 Cancelled Glucose 101 Calcium 8.7 Total Bilirubin 0.5 AST 45 H ALT 39 H Cancelled Alkaline Phosphatase 52 Total Protein 7.0 Albumin 3.4 L Discharge Plan Discharge Attending physician on discharge: Homa Ruffin Discharging Clinician: Homa Ruffin Anticipated Discharge Date/Time: 11/18/20 14:00 Patient Disposition: Home, Self-Care Activity: as tolerated Diet: heart healthy Discharge Instructions: Pt to follow with her primary care for 1.8 cm hypodense mass in the right hepatic lobe in 3-4 weeks time will need US of liver or MRI of liver and rpt CXR then -in 3-4 weeks time Pt must quarantine for 14 days from positive test @ November Pt must be off work given work off for 2 days which she can extend if she needs Tested positive on 11/14 Patient Instructions: Antibiotic Form Stand Alone Forms: General Discharge Information Follow-up/Referrals: UNKNOWN,DOCTOR [Primary Care Provider] - (DR Herzog ) Discharge Medications: New albuterol sulfate [Proventil HFA] 90 mcg/actuation Hfa Aerosol Inhaler 2 puff inhalation Q6HRT PRN (Reason: Shortness Of Breath) Qty: 1 RF: 0 dexamethasone 6 mg tablet 6 mg PO DAILY Qty: 10 RF: 0 Continued atorvastatin 10 mg tablet 10 mg PO DAILY RF: 0 lisinopril 10 mg tablet 10 mg PO DAILY RF: 0 Date of admission: 11/16/20 11:37 Primary Care Provider: UNKNOWN,DOCTOR Admitting Provider: Usha Cosme Attending physician on admission: Usha Cosme Condition: Stable Quality VTE Prophylaxis VTE prophylaxis: pharmacologic ordered (lovenox BID )
[2020-11-18] MEDS: REMDESIVIR 100 MG/NS 250 ML 100 MG/250 ML BAG 250 MG IVPB (15:09)
== END 2020-11-18 17:40 | disposition home or self-care (01) | DRG 177 ==
LOC: ANHED 20:21 → ANH3MEDSUR 23:57
PROVIDERS: Emergency Medicine; Admitting Provider Internal Medicine; Emergency Provider General Practice; Visit Provider Family Medicine
DX: U07.1 COVID-19 (principal); J12.82 Pneumonia due to coronavirus disease 2019; R09.02 Hypoxemia; I10 Essential (primary) hypertension; E78.5 Hyperlipidemia, unspecified; Z79.899 Other long term (current) drug therapy
CPT/HCPCS: 36415; 36600; 71045; 71046; 71275; 80048; 80053; 82375; 82565; 82805; 83050; 83880; 84460; 84484; 85025; 85380; 86140; 93005; 96365; 96367; 96375; 99285; A9270; C9803; G0378; J0456; J0696; J1100; J1650; Q9967; U0003; U0005

== ENCOUNTER 2021-03-06 20:53 | Emergency (ER) | payer OTHER, SELFPAY ==
[2021-03-06] VITALS (7 sets, daily range): BP systolic 150–184; BP diastolic 76–94; PULSE 63–97; RESP 16–21; TEMP 36.8–36.9; O2SAT 98–100
--- NOTE | 2021-03-06 21:11 | ECG_ITS ---
Measurements Intervals Solomon Rate: 66 P: 33 IA: 170 QRS: 40 QRSD: 84 T: 46 QT: 384 QTc: 405 Interpretive Statements SINUS RHYTHM BASELINE ARTIFACT- II, AVR, AVF, V1, V3-V6 NORMAL ECG Electronically Signed On 03-06-2021 21:50:12 CDT by Felipe Coulter D.O.
--- NOTE | 2021-03-06 21:19 | PC.NURSE ---
Pt presents to ED with complaints of feeling light headed. Pt states she was sitting in the middle of bible study when she began to feel faint. Pt denies loc and nausea. Pt states she had one episode of emesis that was clear liquids. Pt states she has been on a raw diet for the past eight days and worries symptoms may be due to eating taco meat today. Pt denies chest pain and sob at this time. Vitals are stable and pt remains alert and oriented x4. Son is present at bedside. Call button and personal items within reach. Pt advised to press call button for assistance.
[2021-03-06 21:49] LABS: Basophils Percent Auto 0.4 % (0.2-1.2); Eosinophils Absolute Auto 0.1 K/mm3 (0-0.3); Eosinophils Percent Auto 1.8 % (0-4.4); Hematocrit 39.3 % (37.0-47.0); Hemoglobin 12.6 g/dL (12.0-15.0); Immature Granulocyte Absolute 0.02 K/mm3 (0.00-0.031); Immature Granulocyte Percent A 0.3 % (0-0.5); Lymphocytes Absolute Auto 2.48 K/mm3 (0.9-3.2); Mean Corpuscular HGB Conc 32.1 g/dl (32-36); Mean Corpuscular Hemoglobin 27.2 pg (26-34); Mean Corpuscular Volume 84.7 fl (80-100); Monocytes Absolute Auto 0.8 K/mm3 (0.1-0.6); Monocytes Percent Auto 10.6 % (2.6-8.5); Neutrophils Absolute Auto 4.3 K/mm3 (1.3-6.7); Neutrophils Percent Auto 54.9 % (45.5-73.1); Platelet Count Result 327 k/mm3 (150-375); Red Blood Count 4.64 M/mm3 (4.2-5.4); Red Cell Distribution Width 12.9 % (11.5-14.5); White Blood Count 7.7 K/mm3 (4.5-10.0)
[2021-03-06] MEDS: HYDROGEN PEROXIDE 3% SOLN(*SP) 473 ML BOTTLE (22:06)
[2021-03-06 22:24] LABS: Anion Gap 9 mmol/L (8-16); Blood Urea Nitrogen 12 mg/dL (7-17); Calcium 9.6 mg/dL (8.4-10.2); Carbon Dioxide 25 mmol/L (22-30); Chloride 108 mmol/L (98-107); Estimated Glomerular Filt Rate > 60; Glucose 95 mg/dL (65-105); Potassium 4.3 mmol/L (3.4-5.0); Sodium 142 mmol/L (137-145)
--- NOTE | 2021-03-06 22:57 | PC.NURSE ---
Irrigation of right ear completed. Two large balls or cerumen removed and pt states shes can hear clearly and hearing is no longer fuzzy . EDMD notified of completion of irrigation.
--- NOTE | 2021-03-06 23:06 | ED.GENADULT ---
HPI - General Adult General Chief complaint: Syncope Stated complaint: lightheaded Time Seen by Provider: 03/06/21 21:43 History of Present Illness HPI narrative: Patient is a 55-year-old female presents the emergency department with chief complaint of lightheadedness. Patient reports that she was cooking tasted some food that she was cooking and had an episode where she felt very lightheaded and felt as though she was going to pass out. Patient reports she did not actually pass out reports that she has had decreased hearing in her right ear. Patient states she also has A crackling sensation in the right ear as well. Related Data Home Medications Medication Instructions Recorded Confirmed atorvastatin 10 mg PO DAILY 05/21/20 11/15/20 lisinopril 10 mg PO DAILY 05/21/20 11/15/20 Allergies Allergy/AdvReac Type Severity Reaction Status Date / Time No Known Allergies Allergy Verified 07/09/20 07:15 Review of Systems Review of Systems: Narrative: A 10 system review of systems was completed on the patient and is negative except for what is stated in the HPI. Nursing and ancillary documentation was reviewed. PMFSH Past Medical History Medical History Hyperlipidemia Hypertension Social History Social History Smoking status: Never smoker Alcohol intake: never Substance use: never Gender identity (if verbalized by the patient): Female Spiritual care concerns: No Exam Narrative: Exam Narrative: GENERAL: Well-appearing, well-nourished, and in no acute distress. HEAD: Normocephalic, atraumatic. EYES: PERRLA and EOMI. ENT: Nares clear, no rhinorrhea or epistaxis. Mucous membranes moist. There is a cerumen impaction present on the right ear, this was irrigated by the nursing staff and the tympanic membrane was normal after irrigation NECK: Supple. CHEST: Clear to auscultation. No respiratory distress. HEART: Regular rate and rhythm. No murmur heard. Normal peripheral pulses. ABDOMEN: Soft, nontender, nondistended, normal active bowel sounds. EXTREMITIES: Normal range of motion. No edema. SKIN: Warm, dry, no rash. NEURO: No focal deficits. Alert and oriented x3. PSYCH: Normal mood and affect. Course Vital Signs Vital signs: Vital Signs Temperature 36.9 C 03/06/21 21:02 Pulse Rate 92 03/06/21 21:02 Respiratory Rate 18 03/06/21 21:02 Blood Pressure 166/76 H 03/06/21 21:02 Pulse Oximetry 100 03/06/21 21:02 Temperature 36.9 C 03/06/21 21:02 Pulse Rate 64 03/06/21 23:03 Respiratory Rate 21 H 03/06/21 23:03 Blood Pressure 150/78 H 03/06/21 23:03 Pulse Oximetry 100 03/06/21 23:03 Medical Decision Making Vital Signs Vital Signs: Vital Signs Temperature 36.9 C 03/06/21 21:02 Pulse Rate 92 03/06/21 21:02 Respiratory Rate 18 03/06/21 21:02 Blood Pressure 166/76 H 03/06/21 21:02 Pulse Oximetry 100 03/06/21 21:02 Temperature 36.9 C 03/06/21 21:02 Pulse Rate 64 03/06/21 23:03 Respiratory Rate 21 H 03/06/21 23:03 Blood Pressure 150/78 H 03/06/21 23:03 Pulse Oximetry 100 03/06/21 23:03 Lab Data Result diagrams: 03/06/21 21:42 03/06/21 22:11 Labs: Lab Results 03/06/21 03/06/21 Range/Units 21:42 22:11 WBC 7.7 (4.5-10.0) K/mm3 RBC 4.64 (4.2-5.4) M/mm3 Hgb 12.6 (12.0-15.0) g/dL Hct 39.3 (37.0-47.0) % MCV 84.7 (80-100) fl MCH 27.2 (26-34) pg MCHC 32.1 (32-36) g/dl RDW 12.9 (11.5-14.5) % Plt Count 327 (150-375) k/mm3 MPV 9.0 (7.4-10.4) fl Immature Gran % (Auto) 0.3 (0-0.5) % Neut % (Auto) 54.9 (45.5-73.1) % Lymph % (Auto) 32.0 (18.3-44.2) % Garza % (Auto) 10.6 H (2.6-8.5) % Eos % (Auto) 1.8 (0-4.4) % Baso % (Auto) 0.4 (0.2-1.2) % Lymph # (Auto) 2.48 (0.9-3.2) K/mm3 Garza # (Auto) 0.8 H (0.1-0.6) K/mm3 Eos
== END 2021-03-06 23:37 | disposition home or self-care (01) ==
PROVIDERS: Emergency Medicine; Emergency Provider Emergency Medicine; PCP Internal Medicine
DX: R55 Syncope and collapse (principal); H61.21 Impacted cerumen, right ear; E78.5 Hyperlipidemia, unspecified; I10 Essential (primary) hypertension
CPT/HCPCS: 36415; 69209; 80048; 81025; 85025; 93005; 99283; A9270

== ENCOUNTER 2021-04-04 18:35 | Emergency (ER) | payer OTHER, SELFPAY ==
[2021-04-04 18:48] VITALS: BP 143/74; PULSE 80; RESP 16; TEMP 37.1; O2SAT 98
--- NOTE | 2021-04-04 19:25 | ED.EAR ---
HPI - Ear Problem General Chief complaint: Ear Stated complaint: ear pain Time Seen by Provider: 04/04/21 19:18 Source: patient and RN notes reviewed Mode of arrival: ambulatory Limitations: no limitations History of Present Illness HPI Narrative: Patient presents today complaining of feeling funny in the ears since this morning. States last time she felt this way she went to the ER and they cleaned cerumen out of her ear. Denies pain, drainage, tinnitus, loss of hearing. She has tried no [id number] interventions prior to arrival. Related Data Home Medications Medication Instructions Recorded Confirmed atorvastatin [Lipitor] 1 mg PO DAILY 04/04/21 04/04/21 lisinopril [Zestril] 10 mg PO DAILY 04/04/21 04/04/21 Allergies Allergy/AdvReac Type Severity Reaction Status Date / Time No Known Allergies Allergy Verified 04/04/21 18:56 Review of Systems Review of Systems: Narrative: CONSTITUTIONAL: Denies body aches, fever, chills, or sweats. EYES: Denies visual changes, redness, or discharge. ENT: Denies rhinorrhea, congestion, sore throat, or otalgia. feeling off in the ears CARDIOVASCULAR: Denies chest pain, palpitations, or edema. RESPIRATORY: Denies cough or dyspnea. GASTROINTESTINAL: Denies abdominal pain, nausea, vomiting, or diarrhea. GENITOURINARY: Denies dysuria or hematuria. SKIN: Denies rash, itching, or wounds. MUSCULOSKELETAL: Denies back pain, joint pain, or myalgia. NEUROLOGIC: Denies headache, numbness, tingling, or weakness. PSYCH: Denies depression or anxiety. [facility] Past Medical History Medical History Hyperlipidemia Hypertension Social History Social History Smoking status: Never smoker Alcohol intake: never Substance use: never Gender identity (if verbalized by the patient): Female Spiritual care concerns: No Comments At time of signature, I have reviewed and agree with nursing past medical, surgical, social and family history unless otherwise noted. Please see nursing chart for further information. There is no relevant family history pertinent to the presenting complaint Exam Narrative: Exam Narrative: GENERAL: Well-appearing, well-nourished, and in no acute distress. HEAD: Normocephalic, atraumatic. EYES: EOMI. No redness or drainage. Conjunctivae normal. ENT: Mucous membranes pink and moist. Nares clear. No rhinorrhea. Bilateral TMs are normal with moderate amount of clear fluid behind them. Air bubbles evident. NECK: Normal AROM. Supple. No lymphadenopathy. CHEST: No respiratory distress. Clear to auscultation. HEART: Regular rate and rhythm. No murmur appreciated. Normal peripheral pulses. EXTREMITIES: Normal range of motion. No edema. SKIN: Warm, dry, no rash. Capillary refill normal. Normal skin turgor. NEURO: No focal deficits. Alert and oriented x3. Gait steady. PSYCH: Normal affect. No signs of depression or anxiety. Course Vital Signs Vital signs: Vital Signs Temperature 98.7 F 04/04/21 18:48 Pulse Rate 80 04/04/21 18:48 Respiratory Rate 16 04/04/21 18:48 Blood Pressure 143/74 H 04/04/21 18:48 Pulse Oximetry 98 04/04/21 18:48 Temperature 98.7 F 04/04/21 18:48 Pulse Rate 80 04/04/21 18:48 Respiratory Rate 16 04/04/21 18:48 Blood Pressure 143/74 H 04/04/21 18:48 Pulse Oximetry 98 04/04/21 18:48 Reviewed. Pt has been instructed to follow up with her PCP regarding her elevated blood pressure today. Medical Decision Making Differential Diagnosis Differential Diagnosis: Otitis media, otitis externa, ruptured TM, serous otitis, eustachian tube dysfunction, cerumen impaction Vital Signs Vital Signs: Vital Signs Temperature 98.7 F 04/04/21 18:48 Pulse Rate 80 04/04/21 18:48 Respiratory Rate 16 04/04/21 18:48 Blood Pressure 143/74 H 04/04/21 18:48 Pulse Oximetry 98 04/04/21 18:4
== END 2021-04-04 19:34 | disposition home or self-care (01) ==
PROVIDERS: Emergency Provider Nurse Practitioner
DX: H65.03 Acute serous otitis media, bilateral (principal); E78.5 Hyperlipidemia, unspecified; I10 Essential (primary) hypertension
CPT/HCPCS: 99211; G0463

== ENCOUNTER 2022-09-24 12:10 | Emergency (ER) | payer OTHER, SELFPAY ==
[2022-09-24 12:22] VITALS: BP 138/72; PULSE 61; RESP 16; TEMP 36.3; O2SAT 98
--- NOTE | 2022-09-24 12:40 | ED.FEMALEGU ---
HPI - Female Genitourinary General Chief complaint: Urogenital-Female Stated complaint: Vaginal Problems Time Seen by Provider: 09/24/22 12:41 Source: patient, RN notes reviewed and old records reviewed Mode of arrival: ambulatory Limitations: no limitations History of Present Illness HPI Narrative: 57-year-old female presents to the [facility] with the only complaint of yellow to white discharge for 3 days. Denies any itching burning. Denies . Denies any chances of an STD. Related Data Home Medications Medication Instructions Recorded Confirmed atorvastatin 10 mg tablet (Lipitor) 1 mg PO DAILY 04/04/21 04/04/21 lisinopril 10 mg tablet (Zestril) 10 mg PO DAILY 04/04/21 04/04/21 Allergies Allergy/AdvReac Type Severity Reaction Status Date / Time No Known Allergies Allergy Verified 09/24/22 12:19 Review of Systems Review of Systems: All systems reviewed & are unremarkable except as noted in HPI and below Constitutional: Constitutional: Reports no additional constitutional complaints Eyes: Eyes: Reports no additional eye complaints ENT: Reports system reviewed and no additional complaints, except as documented Cardiovascular: Cardiovascular: Reports no additional cardiovascular complaints, Denies chest pain and Denies dyspnea Respiratory: Respiratory: Reports no additional respiratory complaints, Denies chest congestion, Denies cough and Denies dyspnea Gastrointestinal: Gastrointestinal: Reports no additional gastrointestinal complaints, Denies abdominal pain, Denies nausea and Denies vomiting Genitourinary: Genitourinary: Reports as per HPI and Reports vaginal discharge Musculoskeletal: Musculoskeletal: Reports no additional musculoskeletal complaints Integumentary/Breasts: Skin/Breast: Reports system reviewed and no additional complaints, except as docu Neurologic: Reports system reviewed and no additional complaints, except as documented Psychiatric: Psychiatric: Reports no additional psychiatric complaints Allergic/Immunologic: Allergic/Immunologic: Reports no additional allergic/immunologic complaints [facility] Past Medical History Medical History Hyperlipidemia Hypertension Social History Social History Smoking status: Never smoker Alcohol intake: never Substance use: never Gender identity (if verbalized by the patient): Female Spiritual care concerns: No Comments At the time of my signature, I reviewed and agree with the nursing past medical, surgical, social, and family history. There is no relevant family history pertinent to the patient complaint. Exam Const: General: cooperative, healthy appearing, comfortable, no acute distress, well developed, alert and well nourished Nutritional Appearance: well nourished and obese Orientation/consciousness: patient oriented x3 Limitations: no limitations HENMT: Head: normal to inspection Ears: hearing grossly normal bilaterally and external ears normal Face/Nose/Sinus: Normal external nose present, Normal nares present, Normal nasal mucous membranes and turbinates present and normal facial exam Face and sinus: normal facial exam Mouth: Yes Normal oral and palatal mucosa present, Yes lip normal and Yes moist mucous membranes Eyes: General: appearance normal, both eyes and all related structures Alignment and Position: alignment normal Periorbital: periorbital findings normal Conjunctivae: conjunctivae normal Pupils: Equal, round and reactive pupils present EOM: EOMs intact bilaterally Neck: Neck: normal visual inspection, full ROM, no lymphadenopathy and no meningeal signs Chest: Chest palpation & inspection: normal inspection of the chest Resp: Effort & Inspection: normal respiratory effort and able to speak in complete sentences Cardio: Rate: regular rate Back/Spine/Pelvis: Cervical Spine: cervical ROM normal
== END 2022-09-24 12:54 | disposition home or self-care (01) ==
PROVIDERS: Emergency Provider Nurse Practitioner; PCP Internal Medicine
DX: N76.0 Acute vaginitis (principal); E78.5 Hyperlipidemia, unspecified; I10 Essential (primary) hypertension
CPT/HCPCS: 99213; G0463